=== PATIENT | male | born 1965 ===

== ENCOUNTER 2021-11-22 16:06 | Emergency (ER) | payer OTHER ==
[~2021-11-22] VITALS: Ht 182.9 cm; Wt 86.2 kg
== END 2021-11-22 16:33 | disposition left against medical advice (07) ==
LOC: ER 16:06
DX: S09.90XA Unspecified injury of head, initial encounter (principal); W17.89XA Other fall from one level to another, initial encounter; Z53.21 Procedure and treatment not carried out due to patient leaving prior to being seen by health care provider
CPT/HCPCS: 99283

== ENCOUNTER 2022-01-26 06:37 | Day surgery (SDC) | payer OTHER ==
[~2022-01-26] VITALS: Ht 182.9 cm; Wt 86.5 kg
--- NOTE | 2022-01-26 09:16 | NUR ---
[facility] in [facility] warming gown applied. Surgical site prepped with 2% Chlorhexidine cloth wipe. History, Chart, Medications and Allergies reviewed before start of procedure.Lungs clear T/O to Auscultation. Patient confirms NPO status and agrees with scheduled surgery. Pre-Op teaching done. Pt verbalizes understanding.
[2022-01-26] MEDS ORDERED: HYDR1TAB94 PO (12:38)
--- NOTE | 2022-01-26 12:51 | NUR ---
1215 ARRIVED TO ROOM FROM PACU, PT AMBULATED TO RESTROOM TO VOID. ABD DRESSING CLEAN, DRY AND INTACT TO RIGHT LOWER ABD. PT DENIES PAIN OR NAUSEA. TREMORS OF HANDS NOTED-PT DENIES FEELING JITTERY AND STATES "I WANT TO LEAVE TO HAVE A BEER" PT DECLINES TO STAY , STATES HE WANTS TO LEAVE NOW. DISCUSSED PT VITAL SIGN AND DESIRE TO LEAVE WITH DR WOODS AND WILL DISCHARGE PATIENT HE REQUESTS. PT DECLINES REVIEW OF DISCHARGE INSTRUCTIONS AND STATES HE WILL JUST SIGN THEM. [employer] PRESCRIPTION GIVEN TO PATIENT. PT DECLINES TRANSPORTATION AND SELF AMBULATED OUT OF ROOM. PT STATES HE IS HOMELESS AND DECLINES ANY ASSISTANCE WITH FINDING A PLACE TO GO. PT DISCHARGED AT 1248. IV REMOVED INTACT
== END 2022-01-26 12:48 | disposition home or self-care (01) ==
LOC: ORSCMMR 06:37 → ORD 08:30 → ORSCMMR 08:30 → SURS 12:11 → ORSCMMR 12:48
PROVIDERS: Surgery
PROC: 0YU50JZ Supplement Right Inguinal Region with Synthetic Substitute, Open Approach (ICD-10-PCS; principal; 2022-01-26 08:30)
DX: K40.30 Unilateral inguinal hernia, with obstruction, without gangrene, not specified as recurrent (principal); F17.210 Nicotine dependence, cigarettes, uncomplicated; I10 Essential (primary) hypertension; Z86.718 Personal history of other venous thrombosis and embolism
CPT/HCPCS: C1781; J0690; J1100; J1885; J2250; J2405; J2704; J2795; J3010; J7120